=== PATIENT | female | born 2000 | race Caucasian/White ===

== ENCOUNTER → 2021-11-22 | Emergency (ER) | payer BC ==
[~2021-11-22] VITALS: Ht 162.6 cm; Wt 55.3 kg
[2021-11-22 14:02] VITALS: BP 121/74
--- NOTE | 2021-11-22 15:35 | NUR ---
PT AMBULATED TO ER BED 11
[2021-11-22 16:04] LABS: BASOPHILS % (AUTO) 0.5 % (0.0-2.0); EOSINOPHILS % (AUTO) 0.5 % (0.0-4.0); HEMATOCRIT 43.4 % (36-48); HEMOGLOBIN 14.4 g/dL (12.0-16.0); LYMPHOCYTES # (AUTO) 2.6 K/uL (2.5-16.5); LYMPHOCYTES % (AUTO) 37.7 % (20.5-51.1); MEAN CORPUSCULAR HEMOGLOBIN 31 pg (27-31); MEAN CORPUSCULAR HGB CONC 33 g/dL (33-37); MEAN CORPUSCULAR VOLUME 93.2 fL (80-94); MONOCYTES # (AUTO) 0.5 K/uL (0.8-1.0); NEUTROPHILS # (AUTO) 3.7 K/uL (1.8-7.7); NEUTROPHILS % (AUTO) 54.3 % (42.2-75.2); PLATELET COUNT (AUTO) 278 K/uL (140-450); RED BLOOD CELL COUNT(AUTO) 4.66 MIL/uL (4.20-5.40); WHITE BLOOD COUNT (AUTO) 6.9 K/uL (4.8-10.8)
--- NOTE | 2021-11-22 16:14 | NUR ---
patient is being taken for ultrasound via wheelchair
--- NOTE | 2021-11-22 16:30 | NUR ---
21 y/o F BIB self from home c/o vaginal bleeding x 1 month. Patient A&Ox4, ambulatory, states weakness/fatigue and reports increased vaginal bleeding. Pt reports 5/10 cramping/constant, non-radiating pain. Denies vaginal clots, discharge, foul odors, itchiness. Reports Tylenol with minor relief to symptoms. States implant for control to upper arm. Denies nausea or vomiting. Pt placed into a gown. Bed locked in lowest position, side rails x 1. PMH/Sx/Meds: Denies NKDA
--- NOTE | 2021-11-22 17:32 | NUR ---
Patient appears to be resting comfortably in bed. Vital Signs within normal limits. Respirations even and unlabored. Bed locked in lowest position, side rails x 1.
[2021-11-22 17:53] LABS: APPEARANCE,URINE CLEAR (CLEAR); BILIRUBIN,URINE NEGATIVE (NEGATIVE); BLOOD, URINE 3+ (NEGATIVE); COLOR,URINE YELLOW (YELLOW); LEUKOCYTE ESTERASE ,URINE NEGATIVE (NEGATIVE); NITRITE, URINE NEGATIVE (NEGATIVE); UGLUCOSE NEGATIVE (NEGATIVE)
[2021-11-22 18:01] LABS: RBC,URINE 50-80 /HPF (0-5)
--- NOTE | 2021-11-22 18:26 | NUR ---
PER DR BUSH PATIENT OK TO HAVE FOOD.
--- NOTE | 2021-11-22 18:55 | NUR ---
Chart checked and completed. The patient's care was reviewed and supervised by Adama Vázquez, RN, RN.
--- NOTE | 2021-11-22 18:57 | NUR ---
Patient discharged with information for ovarian cyst and menorrhagia v/s stable. Written and verbal after care instructions given. Patient verbalized understanding. Ambulatory with steady gait. All questions addressed prior to discharge. Advised to follow up with PMD.
[2021-11-22 18:59] VITALS: BP 130/70
== END | disposition home or self-care (01) ==
LOC: MED 13:51
DX: N92.1 Excessive and frequent menstruation with irregular cycle (principal)
CPT/HCPCS: 36415; 76830; 76856; 81001; 81025; 85025; 87086; 99284; Q0092

== ENCOUNTER 2022-02-16 11:28 | Emergency (ER) | payer BC, MEDICAID ==
[~2022-02-16] VITALS: Ht 162.6 cm; Wt 57.2 kg
[2022-02-16 11:38] VITALS: BP 126/77
[2022-02-16] MEDS ORDERED: BACITRACIN OINT 500 UNITS/GM PKT TP SCH (12:53)
[2022-02-16] MEDS ORDERED: IBUPROFEN 600 MG TAB PO SCH (12:54)
[2022-02-16] MEDS ORDERED: BACI1PAC6 TP (13:14)
[2022-02-16] MEDS ORDERED: IBUP-2213 PO (13:14)
--- NOTE | 2022-02-16 13:26 | NUR ---
21 Y/O FEMALE BIB SELF FOR C/O OF RIGHT KNEE PAIN. PATIENT FELL FROM SCOOTER LAST NIGHT AND LANDED ON RIGHT KNEE. PATIENT HAS AN ABRASION TO RIGHT KNEE. DENIES LOC, FEVER, CHILLS, NAUSEA. PATIENT IS ABLE TO AMBULATE AND MOVE EXTREMITIES. MEDICAL HISTORY: DENIES NKDA
[2022-02-16 13:28] VITALS: BP 119/61
--- NOTE | 2022-02-16 13:32 | NUR ---
21/F PRESENTS TO ED WITH C/O RIGHT KNEE PAIN. PATIENT STATES SHE FELL FROM A SCOOTER LAST NIGHT AND LANDED ON RIGHT KNEE. PATIENT HAS AN ABRASION TO RIGHT KNEE, DENIES HEAD OR NECK INJURY, DENIES LOC. PATIENT AMBULATORY UPON ARRIVAL TO ED, SENSATION AND PULSES EQUAL BILATERALLY.
--- NOTE | 2022-02-16 14:03 | NUR ---
Patient discharged with v/s stable. Written and verbal after care instructions given. Patient alert, oriented and verbalized understanding of instructions. Ambulatory with steady gait. All questions addressed prior to discharge. ID band removed. Patient advised to follow up with PMD. Rx of BACITRACIN OINTMENT AND IBUPROFEN given. Opportunity to ask questions provided and answered.
--- NOTE | 2022-02-16 14:10 | NUR ---
The patient's care was reviewed and supervised by Della Workman RN.
== END 2022-02-16 14:03 | disposition home or self-care (01) ==
LOC: MED 11:28
DX: S93.401A Sprain of unspecified ligament of right ankle, initial encounter (principal); S83.91XA Sprain of unspecified site of right knee, initial encounter; S50.312A Abrasion of left elbow, initial encounter; S50.311A Abrasion of right elbow, initial encounter; S80.212A Abrasion, left knee, initial encounter; Z79.899 Other long term (current) drug therapy; W05.1XXA Fall from non-moving nonmotorized scooter, initial encounter; Y93.89 Activity, other specified; Y92.89 Other specified places as the place of occurrence of the external cause; Y99.8 Other external cause status
CPT/HCPCS: 73562; 73610; 99284